=== PATIENT | female | born 1990 | race Hispanic/Latino ===

== ENCOUNTER 2021-04-13 17:48 | Inpatient (IN) | payer BC ==
[~2021-04-13] VITALS: Ht 157.5 cm; Wt 81.6 kg
[2021-04-13 18:31] LABS: APPEARANCE,URINE Cloudy (CLEAR); BILIRUBIN,URINE Negative (NEGATIVE); COLOR,URINE Yellow (YELLOW); GLUCOSE, URINE (UA) TRACE mg/dL (NEGATIVE); KETONES,URINE 15 mg/dL (NEGATIVE); LEUKOCYTE ESTERASE ,URINE Moderate (NEGATIVE); NITRATE,URINE Negative (NEGATIVE); OCCULT BLOOD,URINE Negative (NEGATIVE); PROTEIN,URINE Negative (NEGATIVE)
[2021-04-13] MEDS: LACTATED RINGERS 1000ML 1,000 ML IV SCH ×2 (18:59→21:21)
[2021-04-13 19:09] LABS: RBC,URINE 0-1 /HPF (0-1)
[2021-04-13 19:10] LABS: BACTERIA,URINE Few /HPF (None Seen); SQUAMOUS EPITHELIAL CELL,UR Moderate /HPF (0-2)
[2021-04-13 19:29] LABS: HEMATOCRIT 33.7 % (36-48); MEAN CORPUSCULAR HEMOGLOBIN 28.7 pg (27.0-33.0); MEAN CORPUSCULAR HGB CONC 31.8 g/dL (32.0-36.0); MEAN CORPUSCULAR VOLUME 90.3 fL (79-99); RED BLOOD CELL COUNT(AUTO) 3.73 MIL/uL (4.00-5.50); RED CELL DISTRIBUTION WIDTH 12.7 % (11.0-15.5); WHITE BLOOD COUNT (AUTO) 8.4 K/uL (4.8-10.8)
[2021-04-13] MEDS ORDERED: MAGNESIUM 4GM PREMIX 100ML 100 ML IV SCH (19:30)
[2021-04-13] MEDS ORDERED: AMPICILLIN 2GM+NS 100ML 100 ML IV SCH (19:30)
[2021-04-13] MEDS ORDERED: CALCIUM GLUC 1GM/10ML VIAL IV PRN (19:30)
[2021-04-13 19:37] LABS: AMPHET/METH SCREEN,URINE NEGATIVE (NEGATIVE); BARBITURATE SCREEN, URINE NEGATIVE (NEGATIVE); BENZODIAZEPINES SCREEN,URINE NEGATIVE (NEGATIVE); CANNABINOID SCREEN,URINE NEGATIVE (NEGATIVE); COCAINE SCREEN,URINE NEGATIVE (NEGATIVE); OPIATE SCREEN,URINE NEGATIVE (NEGATIVE); PHENCYCLIDINE SCREEN,URINE NEGATIVE (NEGATIVE)
[2021-04-13] MEDS: CELESTONE SOLUSPAN 6 MG/ML 5ML VIAL IM SCH ×3 (20:00→20:10)
[2021-04-13] MEDS: MAGNESIUM SULFATE 40GM/1000ML 1,000 ML IV SCH (20:22)
[2021-04-14] MEDS: AMPICILLIN 1GM+NS 50ML 50 ML IV SCH ×6 (00:16→20:22)
[2021-04-14 10:01] LABS: RAPID PLASMA REAGIN NONREACTIVE (NONREACTIVE)
[2021-04-14] MEDS: LACTATED RINGERS 1000ML 1,000 ML IV SCH ×2 (12:02→23:50)
[2021-04-14] MEDS: MAGNESIUM SULFATE 40GM/1000ML 1,000 ML IV SCH (12:06)
[2021-04-15] MEDS: AMPICILLIN 1GM+NS 50ML 50 ML IV SCH ×3 (00:27→05:09)
[2021-04-15] MEDS ORDERED: LIDOCAINE HCL 1% 20 ML VIAL ONE (01:13)
[2021-04-15] MEDS ORDERED: OXYTOCIN-LR 20 UNITS/1000 ML 1,000 ML IV ONE ×2 (01:13→02:30)
[2021-04-15] MEDS ORDERED: MISOPROSTOL 200 MCG TABLET ONE ×2 (01:14→01:15)
[2021-04-15] MEDS ORDERED: IBUPROFEN 600 MG TABLET ONE (02:22)
[2021-04-15] MEDS ORDERED: ACETAMINOPHEN WITH CODEINE 1 TAB TAB PO PRN (02:30)
[2021-04-15] MEDS ORDERED: MEASLES/MUMPS/RUBELLA VACCINE, LIVE 0.5 ML/VIAL SQ PRN (02:30)
[2021-04-15] MEDS ORDERED: BENZOCAINE/LANOLIN/ALOE VERA 60 ML AEROSOL TP PRN (02:30)
[2021-04-15] MEDS ORDERED: IBUPROFEN 600 MG TABLET PO PRN (02:30)
[2021-04-15] MEDS ORDERED: WITCH HAZEL 1 PAD TP PRN (02:30)
[2021-04-15] MEDS ORDERED: LANOLIN 30GM OINTMENT TP PRN (02:30)
[2021-04-15] MEDS ORDERED: ACETAMINOPHEN 325 MG TAB PO PRN (02:30)
[2021-04-15 04:00] VITALS: BP 96/55
[2021-04-15] MEDS ORDERED: PREN-154 PO (05:01)
[2021-04-15] MEDS: MAGNESIUM SULFATE 40GM/1000ML 1,000 ML IV SCH (05:11)
[2021-04-15 08:00] VITALS: BP 92/60
[2021-04-15] MEDS ORDERED: DOCUSATE SODIUM 100 MG CAP PO SCH (09:00)
[2021-04-15 14:10] LABS: HEPATITIS Bs ANTIGEN SCREEN P Negative (Negative)
== END 2021-04-15 10:25 | disposition home or self-care (01) | DRG 807 ==
LOC: EDH 17:48 → OBSVTOIN 18:10 → LDH 18:10 → WSH 04-15 03:57
PROVIDERS: ADMIT Obstetrics & Gynecology; ATTEND Obstetrics & Gynecology
PROC: 10E0XZZ Delivery of Products of Conception, External Approach (ICD-10-PCS; principal; 2021-04-15)
DX: O60.14X0 Preterm labor third trimester with preterm delivery third trimester, not applicable or unspecified (principal); Z37.0 Single live birth; Z3A.32 32 weeks gestation of pregnancy
CPT/HCPCS: 36415; 76805; 80305; 81001; 83735; 85027; 86592; 86701; 86850; 86900; 86901; 87070; 87076; 87077; 87088; 87186; 87340; 87390; A4314; G0378; J0290; J0702; J2590; J3475; J7120